=== PATIENT | female | born 1960 | race Caucasian/White ===

== ENCOUNTER → 2019-02-27 11:46 | Outpatient (CLI) | payer OTHER, SELFPAY ==
[2019-02-27 12:35] LABS: Add Manual Diff / Slide Review NO; Basophils Absolute Auto 0 /uL (0-100); Basophils Percent Auto 1.1 % (0-2); Eosinophils Absolute Auto 100 /uL (0-450); Hematocrit 39.5 % (36-46); Hemoglobin 13.5 g/dL (12.0-16.0); Lymphocytes Absolute Auto 700 /uL (1100-4500); Lymphocytes Percent Auto 25.1 % (25-40); Mean Corpuscular HGB Conc 34.2 % (30-36); Mean Corpuscular Hemoglobin 34.2 PG (26-34); Mean Corpuscular Volume 100.1 fL (80-100); Monocytes Absolute Auto 300 /uL (0-900); Monocytes Percent Auto 10.8 % (3-14); Neutrophils Absolute Auto 1700 /uL (1500-7000); Platelet Count 254 X10^3/uL (150-400); Red Blood Cell Count 3.94 X10^6/uL (4.0-5.2); Red Cell Distribution Width 11.9 % (11.6-14.8); White Blood Cell Count 2.8 X10^3/uL (4.5-11.0)
[2019-02-27 14:11] LABS: Folate > 20.0 ng/mL (2.76-20.0); Vitamin B12 339 pg/mL (239-931)
[2019-02-27 17:17] LABS: Hep C Virus Ab w/Reflex Quant NEGATIVE s/c (NEGATIVE)
== END ==
PROVIDERS: Family Provider Internal Medicine; PCP Internal Medicine
DX: D72.819 Decreased white blood cell count, unspecified (principal)
CPT/HCPCS: 36415; 82607; 82746; 85025; 86803

== ENCOUNTER → 2019-03-20 12:54 | Outpatient (CLI) | payer OTHER, SELFPAY ==
[2019-03-20 14:06] LABS: Hematocrit 38.6 % (36-46); Hemoglobin 13.2 g/dL (12.0-16.0); Mean Corpuscular HGB Conc 34.3 % (30-36); Mean Corpuscular Hemoglobin 33.9 PG (26-34); Mean Corpuscular Volume 98.9 fL (80-100); Platelet Count 291 X10^3/uL (150-400); Red Cell Distribution Width 11.8 % (11.6-14.8); White Blood Cell Count 4.1 X10^3/uL (4.5-11.0)
[2019-03-20 14:47] LABS: Neutrophils Absolute Manual 2706 /uL (3000-5900); RBC Morphology Normal Morphology; Total Cells Counted 100
== END ==
PROVIDERS: Family Provider Internal Medicine; PCP Internal Medicine
DX: D72.819 Decreased white blood cell count, unspecified (principal)
CPT/HCPCS: 36415; 85025

== ENCOUNTER 2020-05-24 10:24 | Emergency (ER) | payer OTHER, SELFPAY ==
[2020-05-24 10:49] VITALS: BP 164/78; PULSE 79; RESP 16; TEMP 36.7; O2SAT 97; BMI 24.8
--- NOTE | 2020-05-24 10:51 | DI.RAD.S_ITS ---
PROCEDURE: XR KNEE LT 3V INDICATIONS: fall TECHNIQUE: 3 views of the knee were acquired. COMPARISON: None. FINDINGS: Bones: Apparent fractures of the tibial spines are seen. No dislocations. No suspicious bony lesions. There is mild medial femorotibial joint space narrowing seen, with associated remodeling changes including subchondral sclerosis and osteophyte formation along the jointline. Soft tissues: There is a mild to moderate joint effusion. No suspicious soft tissue calcifications. IMPRESSION: Apparent fractures of the tibial spines can be seen. If clinically appropriate, please consider a follow-up CT for further evaluation. Mild to moderate joint effusion. Dictated by: Harinder Herr M.D. on 05/24/2020 at 10:28 Approved by: Harinder Herr M.D. on 05/24/2020 at 10:29
--- NOTE | 2020-05-24 10:55 | ED_ITS ---
HPI - Extremity Injury (Lower) <Rita Guzmán PA-C - Last Filed: 05/24/20 19:38> General Chief Complaint: Extremity Injury, Lower Stated Complaint: Tripped in [place] yesterday, left knee swelling Time Seen by Provider: 05/24/20 10:55 Source: patient Mode of arrival: other (crutches) History of Present Illness HPI Narrative: This is a 59-year-old woman who presents to the emergency department on crutches complaining left knee pain after she sustained a fall yesterday. She says she was hiking in the park walking her dog she tripped on a root and fell down. She does not remember exactly how the fall happened but she knows she ended up in the bushes holding her knee in severe pain. She says she laid there for a while, eventually was able to get up and walk about 8th of a mile back to her house. She did not have a cell with her when it. 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 She ended up leaving work early yesterday because of this. She elevated it and iced it all night but it still remains extremely painful and she cannot bear weight on it it is very painful to straighten her leg or bend her leg. This morning she felt that she could see muscles around her knee spasming and twitching. She denies numbness and tingling, or any other symptoms. She has never had surgery on this knee although she did have an injury to her knee last winter and has been through physical therapy for this and felt she was almost a 100% normal. complaint: knee injury Onset (ago): day(s) (1) Injury: Left: knee Type of Injury: unknown Place: street/outdoors Severity: severe Severity scale (1-10): 7 Relieving factors: cold therapy, immobilization and rest Exacerbating factors: weight bearing, movement and palpation Context: fall Associated symptoms: swelling and able to partially bear weight Other symptoms: none Treatments prior to arrival: cold therapy and other (elevation) Related Data Home Medications Medication Instructions Recorded Confirmed celecoxib [Celebrex] 200 mg PO QDAY #0 02/25/11 04/08/20 gabapentin [Neurontin] 1,200 mg PO TID #0 02/25/11 04/08/20 paroxetine HCl [Paxil] 20 mg PO QDAY #0 02/25/11 04/08/20 calcium carbonate-vitamin D3 1 tab PO BID 02/26/19 04/08/20 [Calcium 500 + D] folic acid 1 mg DAILY 02/26/19 04/08/20 levothyroxine [Synthroid] 125 mcg DAILY 02/26/19 04/08/20 magnesium 500 mg PO DAILY 02/26/19 04/08/20 metaxalone [Skelaxin] 800 mg PO TID 02/26/19 04/08/20 multivitamin 1 cap PO DAILY 02/26/19 04/08/20 baclofen 10 mg PO TID 05/28/19 04/08/20 cholestyramine-aspartame 4 g PO DAILY 04/08/20 04/08/20 Allergies Allergy/AdvReac Type Severity Reaction Status Date / Time Sulfa (Sulfonamide Allergy Severe SWELLING Unverified 01/03/18 12:18 Antibiotics) OF FACE [SULFA (SULFONAMIDE AND THROAT ANTIBIOTICS)] tetracycline [TETRACYCLINE] Allergy Unknown IN Unverified 01/03/18 12:18 CHILDHOOD Review of Systems <Rita Guzmán PA-C - Last Filed: 05/24/20 19:38> Review of Systems Narrative: GENERAL: Denies chills, fatigue, malaise, fever, sweats. HEENT: Denies sinus pain, ear pain, sore throat, difficulty swallowing, dizziness. RESPIRATORY: Denies dyspnea, cough, wheezing, hemoptysis, sputum. CARDIOVASCULAR: Denies chest pain, palpitations, orthopnea, edema, GASTROINTESTINAL: Denies nausea, vomiting, abdominal pain, diarrhea, constipation, melena. : Denies dysuria, frequency, incontinence, hematuria, urinary retention. MUSCULOSKELETAL: Positive for swelling pain tenderness and reduced range of motion of her left knee denies other weakness, joint pain, or bony pain SKIN: Denies rash, skin lesions, or other NEUROLOGIC: Denies weakness, headache, numbness, change in speech, confusion, seizures, incoordination. PSYCHIATRIC: No concerning psychosocial issues. 12 point review of systems is negative except for those stated above Exam <Rita Guzmán PA-C - Last Filed: 05/24/20 19:38> Narrative Exam Narrative: GENERAL: 59 year old patient appears stated age. Well-nourished, well-developed patient, in mild distress. HEAD: Atraumatic. Normocephalic. EYES: Pupils equal round and reactive. Extraocular motions intact. No scleral icterus. No injection or drainage. ENT: Nose without bleeding, purulent drainage. Throat without erythema, tonsillar hypertrophy or exudate. Airway patent. NECK: Trachea midline. Non tender, no c-spine tenderness, full active range of motion without pain. CARDIOVASCULAR: Regular rate and rhythm without murmurs, gallops, or rubs. RESPIRATORY: Clear to auscultation. Breath sounds equal bilaterally. No wheezes, rales, or rhonchi. GASTROINTESTINAL: Abdomen soft, non-tender, nondistended. EXTREMITIES: The left knee is moderately swollen anteriorly and tender to palpation most notably inferior to the patella. She holds the knee in approximately 120 degrees of flexion for comfort, is able to actively flex and extend at the knee with significant pain but only to approximately 140 and 110?. There is medial joint line tenderness, there is no lateral joint line tenderness, patella is mobile, negative ballottement. Pain with anterior posterior drawer, no laxity noted. Distal pulses are strong and equal 2+, skin is pink, sensation is intact. No other edema or joint tenderness. BACK: Nontender without deformity or crepitance. No flank tenderness. NEURO: AOx3. SKIN: No rash or erythema of visible areas Initial Vital Signs Initial Vital Signs: Vital Signs Temperature 98.1 F 05/24/20 10:49 Pulse Rate 79 05/24/20 10:49 Respiratory Rate 16 05/24/20 10:49 Blood Pressure 164/78 H 05/24/20 10:49 Pulse Oximetry 97 05/24/20 10:49 <Mag Jones MD - Last Filed: 05/25/20 18:09> Initial Vital Signs Initial Vital Signs: Vital Signs Temperature 98.1 F 05/24/20 10:49 Pulse Rate 79 05/24/20 10:49 Respiratory Rate 16 05/24/20 10:49 Blood Pressure 164/78 H 05/24/20 10:49 Pulse Oximetry 97 05/24/20 10:49 Course <Rita Guzmán PA-C - Last Filed: 05/24/20 19:38> Orders Ordered: ED Orders 05/24/20 10:51 XR knee LT 3V Stat Vital Signs Vital signs: Vital Signs - 8 hr 05/24/20 12:29 Pulse Rate 88 Respiratory Rate 16 Blood Pressure 166/72 H Pulse Oximetry 99 <Mag Jones MD - Last Filed: 05/25/20 18:09> Orders Ordered: ED Orders 05/24/20 10:51 XR knee LT 3V Stat Vital Signs Vital signs: Vital Signs - 8 hr 05/24/20 12:29 Pulse Rate 88 Respiratory Rate 16 Blood Pressure 166/72 H Pulse Oximetry 99 MDM - Extremity Injury (Lower) <Rita Guzmán PA-C - Last Filed: 05/24/20 19:38> Differential Diagnosis Differential diagnosis: Likely acute internal derangement of knee and other (sprain/strain, traumatic joint effusion, meniscal injury) Medical Records Attestation: I reviewed the patient's medical records. Imaging Data Extremity x-ray #1: Attestation: I personally reviewed and interpreted this imaging study as follows: Radiologist's Impression: [place] [id number] XRay Report Signed Patient: Magy Murray CMR#: [id number] : [id number]:[id number] Age/Sex: 59 / FDate of Service: 05/24/20 Loc: ED Accession Number: [id number] Procedure: XR knee LT 3V Ordering Provider: Mag Jones MD PROCEDURE: XR KNEE LT 3V INDICATIONS: fall TECHNIQUE: 3 views of the knee were acquired. COMPARISON: None. FINDINGS: Bones: Apparent fractures of the tibial spines are seen. No dislocations. No suspicious bony lesions. There is mild medial femorotibial joint space narrowing seen, with associated remodeling changes including subchondral sclerosis and osteophyte formation along the fabiola ntline. Soft tissues: There is a mild to moderate joint effusion. No suspicious soft tissue calcifications. IMPRESSION: Apparent fractures of the tibial spines can be seen. If clinically appropriate, please consider a follow-up CT for further evaluation. Mild to moderate joint effusion. Dictated by: Harinder Herr M.D. on 05/24/2020 at 10:28 Approved by: Harinder Herr M.D. on 05/24/2020 at 10:29 [facility] Narrative Medical decision making narrative: This is an uncomfortable appearing generally healthy 59-year-old presents complaining of left knee pain and swelling after sustaining a fall yesterday. She denies hitting her head, loss of consciousness or neck pain. She was able to walk after the event. X-ray shows a joint effusion without evidence of fracture. She is placed in a knee immobilizer and she has her own crutches already fitted for previous foot injury. She is advised to follow-up with orthopedics for further evaluation, I suspect a strain, sprain or possibly meniscal injury. Emergency return precautions provided, all questions answered. Discharge Plan Departure Patient Disposition: Home Clinical Impression: Acute pain of left knee, Effusion of left knee Discharge Date/Time: 05/24/20 12:32 Instructions: DI for Knee Sprain Activity Restrictions/Additional Instructions: Thank you for legs be part of your care in the emergency department today. The x-rays did not show evidence of a fracture however you do have an effusion of your knee and significant swelling and reduced range of motion, your ligaments do appear to be intact however you could possibly have injury to your meniscus or a ligamental sprain, I recommend that you do not do any weight-bearing on this leg use the knee immobilizer we are providing and use her crutches when you need to be up and about and that you follow-up with orthopedics for further evaluation. You can continue taking Tylenol for pain. You already have a prescription for a muscle relaxer so I will not prescribe an additional one today. I have also provided a work note for you to be off work hopefully until you have your follow-up appointment with Orthopedics or that you should be on light duty if you do need to go to work. There is no evidence of an emergent or life threatening illness at this time, but follow up with your doctor in 1-2 days is recommended nonetheless to continue to rule out serious underlying causes of your symptoms. Please call the office for an appointment. Please return to the Emergency Department for any worsening or persistent symptoms. Please take medications as directed. Prescriptions: No Action gabapentin [Neurontin] 400 MG capsule 1,200 mg PO TID Qty: 0 RF: 0 celecoxib [Celebrex] 200 MG capsule 200 mg PO QDAY Qty: 0 RF: 0 paroxetine HCl [Paxil] 20 MG tablet 20 mg PO QDAY Qty: 0 RF: 0 levothyroxine [Synthroid] 125 mcg Tablet 125 mcg DAILY RF: 0 folic acid 1 mg Tablet 1 mg DAILY RF: 0 magnesium 250 mg Tablet 500 mg PO DAILY RF: 0 multivitamin Capsule 1 cap PO DAILY RF: 0 metaxalone [Skelaxin] 800 mg Tablet 800 mg PO TID RF: 0 calcium carbonate-vitamin D3 [Calcium 500 + D] 500 mg(1,250mg) -200 unit Tablet 1 tab PO BID RF: 0 baclofen 10 mg Tablet 10 mg PO TID RF: 0 cholestyramine-aspartame 4 gram Powder 4 g PO DAILY RF: 0 Referrals: Brii Fernandez [Primary Care Provider] - Shelly Ivy MD [Physician] - (L knee effusion/trauma, reduced ROM/unable to partially bear weight--no Fx on XR) Stand Alone Forms: Work Release Note <Mag Jones MD - Last Filed: 05/25/20 18:09> Cosign ED Attending Cosignature Attestation: I was immediately available in the department for consultation throughout this patient's visit. I agree with documentation as above. Mag Jones MD
--- NOTE | 2020-05-24 12:27 | PC.NURSE ---
reports tripping on a root and falling while hiking. Uncertain if the trip twisted the knee or the impact of fall deranged knee. Patinet unable to straighten knee. Immobilizer placed and adjusted to patinet. Patient reports the compression of the immobilizer has allowed her to straighten her knee more than she has been able to since injury. Patient using her own crutches from home.
[2020-05-24 12:29] VITALS: BP 166/72; PULSE 88; RESP 16; O2SAT 99
== END 2020-05-24 12:32 | disposition home or self-care (01) ==
PROVIDERS: Emergency Provider Student in an Organized Health Care Education/Training Program; Family Provider Internal Medicine; PCP Internal Medicine
DX: M25.462 Effusion, left knee (principal); M25.562 Pain in left knee; W01.0XXA Fall on same level from slipping, tripping and stumbling without subsequent striking against object, initial encounter
CPT/HCPCS: 73562; 99282; 99283

== ENCOUNTER → 2020-06-05 09:04 | Outpatient (CLI) | payer OTHER, SELFPAY ==
--- NOTE | 2020-06-05 | DI.MRI.S_ITS ---
PROCEDURE: MR KNEE LT WO CON INDICATIONS: Pain in unspecified knee TECHNIQUE: Noncontrast sagittal PD fast spin echo and T2 fast spin echo with fat saturation, sagittal 3-D FLASH with fat saturation; coronal T1 spin echo and PD fast spin echo with fat saturation, and axial PD fast spin echo with fat saturation through the knee. COMPARISON: [facility], CR, XR KNEE LT 3V, 05/24/2020, 10:45. FINDINGS: FINDINGS: Image quality: Degraded by technical factors related to the patient's spine stimulator. Menisci: There is medial extrusion of the medial meniscus. Linear oblique and amorphous high signal intensity within the medial meniscal body and posterior horn is present, demonstrating inferior articular surface extension, indicating complex tearing. There is ill-defined linear oblique high signal intensity within the lateral meniscal body demonstrating inferior articular surface extension, suggestive of tearing. Cruciate ligaments: There is full-thickness tearing of the anterior cruciate ligament at the femoral insertion site. Posterior cruciate ligament is intact. Medial structures: The medial collateral ligament appears intact. Visualized portions of the pes anserinus tendons appear normal. No abnormal bursal fluid. Mild T2 signal elevation adjacent to the tibial insertion site of the semimembranosus. Lateral structures: The lateral collateral ligament, long and short heads of the biceps femoris tendon appear intact. The popliteus tendon appears normal. Iliotibial band appears normal. Anterior structures: The quadriceps and patellar tendons appear intact. Patellar alignment is normal. No femoral trochlear dysplasia or ventral trochlear prominence. No edema in the infrapatellar fat pad. Bones and cartilage: No displaced fracture. There is moderate ill-defined T2 signal elevation within the mid and posterior weight-bearing aspects of the medial and lateral tibial plateaus. There is moderate articular cartilage loss diffusely overlying the weight-bearing aspects of the medial femoral condyle and medial tibia tibial plateau. Mild articular cartilage loss diffusely overlies the weight-bearing aspects of the lateral femoral condyle and lateral tibial plateau. Joint space: There is a large knee joint effusion and a moderate Butler's cyst. Normal appearing synovial plicae are incidentally noted. IMPRESSION: 1. Contusions within the medial and lateral tibial plateaus. No displaced fracture. 2. Complex tearing of the medial meniscus. Probable tearing of the lateral meniscal body. 3. Knee joint effusion and Butler's cyst. 4. Full-thickness tearing of the anterior cruciate ligament. 5. Tricompartmental osteoarthritis with associated articular cartilage loss. Dictated by: Irineo So M.D. on 06/05/2020 at 10:27 Approved by: Irineo So M.D. on 06/05/2020 at 10:31
== END ==
PROVIDERS: Family Provider Internal Medicine; PCP Internal Medicine; Referring Provider Internal Medicine; Visit Provider Internal Medicine
DX: M25.562 Pain in left knee (principal); S83.232A Complex tear of medial meniscus, current injury, left knee, initial encounter; S83.512A Sprain of anterior cruciate ligament of left knee, initial encounter; S80.02XA Contusion of left knee, initial encounter; M71.22 Synovial cyst of popliteal space [Baker], left knee; M17.12 Unilateral primary osteoarthritis, left knee; M25.462 Effusion, left knee
CPT/HCPCS: 73721

== ENCOUNTER → 2020-12-15 08:40 | Outpatient (CLI) | payer OTHER, SELFPAY ==
[2020-12-15] MEDS: COVID-19 VACC #1, MRNA(MOD) 100 MCG/0.5 ML VIAL IM (08:48)
== END ==
PROVIDERS: Family Provider Internal Medicine; PCP Internal Medicine; Visit Provider Internal Medicine
DX: Z23 Encounter for immunization (principal)
CPT/HCPCS: 0011A; 91301

== ENCOUNTER → 2021-01-13 08:37 | Outpatient (CLI) | payer OTHER, SELFPAY ==
[2021-01-13] MEDS: COVID-19 VACC #2, MRNA(MOD) 100 MCG/0.5 ML VIAL IM (08:46)
== END ==
PROVIDERS: Family Provider Internal Medicine; PCP Internal Medicine; Visit Provider Internal Medicine
DX: Z23 Encounter for immunization (principal)
CPT/HCPCS: 0012A; 91301